=== PATIENT | male | born 1955 | race Caucasian/White ===

== ENCOUNTER 2017-02-10 17:38 | Emergency (ER) | payer BC ==
[2017-02-10 19:14] VITALS: BP 157/77
--- NOTE | 2017-02-10 19:15 | UC ---
Abdominal Pain Male HPI - HPI Summary HPI Summary: 61 YO MALE WITH SUPRAPUBIC PAIN X 2 DAYS NO F/C SLIGHT LOOSE STOOLS PAIN IS MILD TO MODERATE HE HAS HAD DIVERTICULITIS X 4 NO UTI SYMPTOMS THIS IS HIS TYPICAL PRESENTATION FOR DIVERTICULTIS - History of Current Complaint Chief Complaint: UCAbdominalPain Stated Complaint: LOW ABD PAIN/HX DIVERTICULITIS Time Seen by Provider: 02/10/17 19:14 Hx Obtained From: Patient Onset/Duration: Gradual Onset, Lasting Minutes, Lasting Days Severity Initially: Mild Severity Currently: Moderate Pain Intensity: 4 Pain Scale Used: 0-10 Numeric Location: Suprapubic Radiates: No Character: Aching Aggravating Factor(s):: Movement Associated Signs And Symptoms: Negative: Diaphoresis, Fever, Cough, Chest Pain, Dizzy, Back Pain, Constipation, Blood in Stool, Urinary Symptoms, Decreased Appetite, Nausea, Vomiting, Diarrhea, Penile Discharge - Risk Factors Testicular Torsion: Negative Cardiac Risk Factors: Negative - Allergies/Home Medications Allergies/Adverse Reactions: Allergies Allergy/AdvReac Type Severity Reaction Status Date / Time No Known Allergies Allergy Verified 02/10/17 19:14 Home Medications: Home Medications Cholecalciferol TAB* [Vitamin D TAB*] 1,000 unit PO DAILY 02/10/17 [History Confirmed 02/10/17] Ranitidine HCl [Zantac 75] 75 mg PO DAILY 02/10/17 [History Confirmed 02/10/17] Tamsulosin CAP* [Flomax CAP*] 0.4 mg PO DAILY 02/10/17 [History Confirmed ] PMH/Surg Hx/FS Hx/Imm Hx Previously Healthy: Yes Endocrine History Of: Denies: Diabetes Cardiovascular History Of: Denies: Cardiac Disorders, Hypertension Respiratory History Of: Denies: Asthma - Surgical History Surgical History: Yes Surgery Procedure, Year, and Place: knee surgery. hernia repair - Family History Known Family History: Positive: Hypertension Negative: Cardiac Disease, Diabetes - Social History Alcohol Use: Rare Substance Use Type: None Smoking Status (MU): Never Smoked Tobacco Review of Systems Constitutional: Negative Skin: Negative Eyes: Negative ENT: Negative Respiratory: Negative Cardiovascular: Negative Gastrointestinal: Abdominal Pain Genitourinary: Negative Motor: Negative Neurovascular: Negative Musculoskeletal: Negative Neurological: Negative Psychological: Negative All Other Systems Reviewed And Are Negative: Yes Physical Exam Triage Information Reviewed: Yes Appearance: Well-Appearing, No Pain Distress, Well-Nourished Vital Signs: Initial Vital Signs Temp 97.9 F 02/10/17 19:10 Pulse 52 02/10/17 19:10 Resp 18 02/10/17 19:10 BP 157/77 02/10/17 19:10 Pulse Ox 98 02/10/17 19:10 Vital Signs Reviewed: Yes Eyes: Positive: Conjunctiva Clear ENT: Positive: Hearing grossly normal. Negative: Nasal congestion, Nasal drainage, Trismus, Muffled/hoarse voice Neck: Positive: Supple, Nontender, No Lymphadenopathy Respiratory: Positive: Lungs clear, Normal breath sounds, No respiratory distress, No accessory muscle use Cardiovascular: Positive: RRR Abdomen Description: Positive: Soft. Negative: Nontender - TENDER SUPRA PUBICALLY AND LLQ, CVA Tenderness (R), CVA Tenderness (L), Distended, Guarding Bowel Sounds: Positive: Present Abd Pain Male Course/Dx - Course Course Of Treatment: DECLINE TRANSFER FOR IMAGING/FURTHER EVAL. STATES HE HAS HAD TOO MANY CTS. WILL GO TO ED FOR WORSENING SYMPTOMS - Differential Dx/Clinical Impression Provider Diagnoses: ADBOMINAL PAIN-SUSPECT DIVERTICULITIS Discharge - Discharge Plan Condition: Stable Disposition: HOME Prescriptions: Amoxicillin/Clavulanate TAB* [Augmentin TAB 875*] 875 mg PO BID #20 tab Metronidazole [Flagyl 500 MG TAB] 500 mg PO QID #40 tab Patient Education Materials: Diverticulitis (ED) Referrals: Lico Mane DO [Primary Care Provider] - 4 Days (IF NOT BETTER) Additional Instructions: TO ER FOR NEW OR WORSENING SYMPTOMS
== END 2017-02-10 19:29 | disposition home or self-care (01) ==
LOC: UCCORT 17:38
DX: R10.30 Lower abdominal pain, unspecified (principal); R19.7 Diarrhea, unspecified; K57.92 Diverticulitis of intestine, part unspecified, without perforation or abscess without bleeding
CPT/HCPCS: 99212; G0463